=== PATIENT | male | born 1940 | race African-American/Black ===

== ENCOUNTER 2017-07-19 14:47 | Emergency (ER) | payer MEDICARE ==
[~2017-07-19] VITALS: Ht 185.4 cm; Wt 96.0 kg
[2017-07-19] MEDS ORDERED: ACETAMINOPHEN 325MG TABLET PO ONE (15:00)
[2017-07-19] MEDS ORDERED: IBUPROFEN 400MG TABLET PO ONE (15:00)
[2017-07-19 18:20] VITALS: BP 141/77
== END 2017-07-19 18:55 | disposition home or self-care (01) ==
LOC: ER 18:43
DX: M25.561 Pain in right knee (principal); I10 Essential (primary) hypertension; W01.0XXA Fall on same level from slipping, tripping and stumbling without subsequent striking against object, initial encounter; Y93.89 Activity, other specified; Y99.8 Other external cause status; Y92.512 Supermarket, store or market as the place of occurrence of the external cause; Z98.890 Other specified postprocedural states
CPT/HCPCS: 72170; 73562; 99284; L1830

== ENCOUNTER → 2020-12-15 | Outpatient (CLI) | payer MEDICARE | END | disposition home or self-care (01) | LOC: US 09:37 | PROVIDERS: ATTEND Internal Medicine Nephrology | DX: I12.9 Hypertensive chronic kidney disease with stage 1 through stage 4 chronic kidney disease, or unspecified chronic kidney disease (principal); N18.30 Chronic kidney disease, stage 3 unspecified; E79.0 Hyperuricemia without signs of inflammatory arthritis and tophaceous disease | CPT/HCPCS: 76770 ==